=== PATIENT | female | born 1990 | race Caucasian/White ===

== ENCOUNTER 2019-03-04 21:21 | Emergency (ER) | payer OTHER, MEDICAID ==
[~2019-03-04] VITALS: Ht 160 cm; Wt 52.2 kg
[~2019-03-04 21:21] MED LIST: BIRTH CONTROL; XANAX; ZOLOFT
[2019-03-04] MEDS ORDERED: REMERON (21:43)
[2019-03-04] MEDS ORDERED: PRAZOSIN (21:44)
[2019-03-04] MEDS ORDERED: LEXAPRO (21:44)
[2019-03-04] MEDS ORDERED: GABAPENTIN (21:44)
[2019-03-04 22:38] LABS: ABSOLUTE EOSINOPHILS 0.2 thou/uL (0.0-0.7); ABSOLUTE LYMPHOCYTES 1.9 thou/uL (0.8-5.3); ABSOLUTE MONOCYTES 0.6 thou/uL (0.0-1.2); ABSOLUTE NEUTROPHILS 4.6 thou/uL (1.6-8.1); BASOPHILS 0.5 %; EOSINOPHILS 2.8 %; HEMATOCRIT 40.3 % (37.0-47.0); HEMOGLOBIN 13.6 gm/dL (12.0-15.0); LYMPHOCYTES 25.3 %; MCH 27.5 pg (26.0-34.0); MCHC 33.6 g/dL (28.0-37.0); MCV 81.7 fL (80.0-100.0); MPV 7.5 fl. (7.2-11.1); NUCLEATED RBCS 0 /100WBC; PLATELET COUNT* 285 thou/uL (150-400); POLYS 63.4 %; RBC 4.94 mil/uL (4.20-5.00); RDW-CV 14.8 % (10.5-14.5); WBC 7.3 thou/uL (4.0-11.0)
[2019-03-04 22:45] LABS: URINE BILIRUBIN NEGATIVE (Negative); URINE BLOOD NEGATIVE (Negative); URINE CLARITY CLEAR; URINE COLOR STRAW; URINE GLUCOSE-RANDOM NEGATIVE (Negative); URINE KETONES NEGATIVE (Negative); URINE LEUKOCYTES-REFLEX TRACE (Negative); URINE NITRITE-REFLEX POSITIVE (Negative); URINE PROTEIN NEGATIVE (Negative); URINE SPECIFIC GRAVITY <= 1.005 (1.005-1.030); URINE UROBILINOGEN 0.2 E.U./dl (0.2-1.0)
[2019-03-04 22:46] LABS: CALCIUM 8.7 mg/dL (8.5-10.1); CREATININE 0.9 mg/dL (0.6-1.3); POTASSIUM 3.9 mmol/L (3.5-5.1)
[2019-03-04 22:51] LABS: ALBUMIN 4.1 g/dL (3.4-5.0); TOTAL BILIRUBIN 0.4 mg/dL (<0.1-1.0); TOTAL PROTEIN 7.8 g/dL (6.4-8.2)
[2019-03-04 22:51] LABS: AMP/METHAMP POSITIVE (Negative); BARBITURATES Negative (Negative); BENZODIAZEPINES Negative (Negative); COCAINE Negative (Negative); METHADONE Negative (Negative); OPIATES Negative (Negative); PCP Negative (Negative); THC Negative (Negative)
[2019-03-04 23:01] LABS: SALICYLATE < 2.8 mg/dL (2.8-20.0)
[2019-03-04 23:02] LABS: ACETAMINOPHEN < 2 ug/mL (10-30); ALCOHOL < 10 mg/dL (<10)
[2019-03-05 00:17] LABS: CASTS None Seen /LPF (None Seen); SQUAMOUS 4-10 Moderate /LPF (0-3); URINE RBC None Seen /HPF (0-2); URINE WBC-REFLEX 0-5 Rare /HPF (0-5)
[2019-03-05 00:18] LABS: CRYSTALS None Seen /LPF (None Seen)
[2019-03-05 12:38] VITALS: BP 102/62
== END 2019-03-05 12:38 | disposition home or self-care (01) ==
LOC: M.ERS 21:21
PROVIDERS: Emergency Medicine Emergency Medical Services
DX: F32.9 Major depressive disorder, single episode, unspecified (principal); F41.9 Anxiety disorder, unspecified; F17.210 Nicotine dependence, cigarettes, uncomplicated; Z88.8 Allergy status to other drugs, medicaments and biological substances; Z79.899 Other long term (current) drug therapy

== ENCOUNTER 2019-04-10 22:33 | Emergency (ER) | payer OTHER, MEDICAID ==
[~2019-04-10] VITALS: Ht 162.6 cm; Wt 57.6 kg
[~2019-04-10 22:33] MED LIST changes: +GABAPENTIN; +LEXAPRO; +PRAZOSIN; +REMERON
[2019-04-10] MEDS ORDERED: NEURONTIN 300M300 M2 PO (22:46)
[2019-04-10] MEDS ORDERED: CELEXA 10 MG TA10 M1 PO (22:46)
[2019-04-10] MEDS ORDERED: PRAZOSIN 1 MG CA1 MG PO (22:47)
[2019-04-10] MEDS ORDERED: REMERON 30 MG T30 M1 PO (22:47)
[2019-04-10] MEDS ORDERED: PRAZOSIN 1 MG CA1 M1 PO (22:48)
[2019-04-10 23:21] LABS: ABSOLUTE EOSINOPHILS 0.1 thou/uL (0.0-0.7); ABSOLUTE LYMPHOCYTES 1.5 thou/uL (0.8-5.3); ABSOLUTE MONOCYTES 0.9 thou/uL (0.0-1.2); ABSOLUTE NEUTROPHILS 4.5 thou/uL (1.6-8.1); BASOPHILS 0.5 %; EOSINOPHILS 1.5 %; HEMATOCRIT 36.7 % (37.0-47.0); HEMOGLOBIN 12.3 gm/dL (12.0-15.0); LYMPHOCYTES 21.5 %; MCH 27.5 pg (26.0-34.0); MCHC 33.6 g/dL (28.0-37.0); MCV 81.9 fL (80.0-100.0); MONOCYTES 12.9 %; MPV 7.3 fl. (7.2-11.1); NUCLEATED RBCS 0 /100WBC; PLATELET COUNT* 297 thou/uL (150-400); POLYS 63.6 %; RBC 4.48 mil/uL (4.20-5.00); RDW-CV 16.3 % (10.5-14.5); WBC 7.1 thou/uL (4.0-11.0)
[2019-04-10 23:25] LABS: CALCIUM 8.2 mg/dL (8.5-10.1); CREATININE 0.9 mg/dL (0.6-1.3); POTASSIUM 3.1 mmol/L (3.5-5.1)
[2019-04-10 23:28] LABS: URINE BILIRUBIN NEGATIVE (Negative); URINE BLOOD 3+ (Negative); URINE CLARITY CLEAR; URINE COLOR YELLOW; URINE GLUCOSE-RANDOM NEGATIVE (Negative); URINE KETONES 1+ (Negative); URINE LEUKOCYTES-REFLEX NEGATIVE (Negative); URINE NITRITE-REFLEX NEGATIVE (Negative); URINE PROTEIN NEGATIVE (Negative); URINE SPECIFIC GRAVITY >= 1.030 (1.005-1.030); URINE UROBILINOGEN 0.2 E.U./dl (0.2-1.0)
[2019-04-10 23:29] LABS: ALBUMIN 4.1 g/dL (3.4-5.0); TOTAL BILIRUBIN 0.4 mg/dL (<0.1-1.0); TOTAL PROTEIN 7.9 g/dL (6.4-8.2)
[2019-04-10 23:34] LABS: AMP/METHAMP POSITIVE (Negative); BARBITURATES Negative (Negative); BENZODIAZEPINES Negative (Negative); COCAINE Negative (Negative); METHADONE Negative (Negative); OPIATES Negative (Negative); PCP Negative (Negative); THC Negative (Negative)
[2019-04-10 23:56] LABS: CASTS None Seen /LPF (None Seen); MUCUS 4-6 Moderate strn/LPF (None Seen); SQUAMOUS 0-3 Few /LPF (0-3)
[2019-04-10 23:57] LABS: URINE WBC-REFLEX 0-5 Rare /HPF (0-5)
[2019-04-10 23:58] LABS: BACTERIA-REFLEX 1-9 Few /HPF (None Seen); CRYSTALS None Seen /LPF (None Seen); URINE RBC 3-10 Few /HPF (0-2)
[2019-04-11 00:07] LABS: ACETAMINOPHEN 55 ug/mL (10-30); SALICYLATE < 2.8 mg/dL (2.8-20.0)
[2019-04-11 00:08] LABS: ALCOHOL < 10 mg/dL (<10)
[2019-04-11 12:48] VITALS: BP 96/57
== END 2019-04-11 12:50 ==
LOC: M.ERS 22:33
PROVIDERS: Family Medicine
DX: R45.851 Suicidal ideations (principal); F41.9 Anxiety disorder, unspecified; F32.9 Major depressive disorder, single episode, unspecified; F17.210 Nicotine dependence, cigarettes, uncomplicated; Z88.8 Allergy status to other drugs, medicaments and biological substances; Z79.899 Other long term (current) drug therapy

== ENCOUNTER 2019-07-02 16:16 | Emergency (ER) | payer OTHER, MEDICAID ==
[~2019-07-02] VITALS: Ht 160 cm; Wt 49.9 kg
[~2019-07-02 16:16] MED LIST changes: +CELEXA 10 MG TA10 M1 PO; +NEURONTIN 300M300 M2 PO; +PRAZOSIN 1 MG CA1 M1 PO; +PRAZOSIN 1 MG CA1 MG PO; +REMERON 30 MG T30 M1 PO
[2019-07-02] MEDS ORDERED: MINIPRESS1 MG PO (16:26)
[2019-07-02] MEDS ORDERED: LEXAPRO 10 MG T10 M2 PO (16:27)
[2019-07-02] MEDS ORDERED: ABILIFY 5 MG TAB5 MG PO (16:27)
[2019-07-02 16:38] LABS: ABSOLUTE EOSINOPHILS 0.1 thou/uL (0.0-0.7); ABSOLUTE LYMPHOCYTES 1.4 thou/uL (0.8-5.3); ABSOLUTE MONOCYTES 0.6 thou/uL (0.0-1.2); ABSOLUTE NEUTROPHILS 4.7 thou/uL (1.6-8.1); BASOPHILS 0.3 %; EOSINOPHILS 1.7 %; HEMATOCRIT 38.7 % (37.0-47.0); HEMOGLOBIN 12.6 gm/dL (12.0-15.0); LYMPHOCYTES 20.2 %; MCHC 32.5 g/dL (28.0-37.0); MCV 80.1 fL (80.0-100.0); MONOCYTES 8.3 %; MPV 6.8 fl. (7.2-11.1); NUCLEATED RBCS 0 /100WBC; PLATELET COUNT* 310 thou/uL (150-400); POLYS 69.5 %; RBC 4.83 mil/uL (4.20-5.00); RDW-CV 15.8 % (10.5-14.5); WBC 6.7 thou/uL (4.0-11.0)
[2019-07-02 16:47] LABS: CALCIUM 8.3 mg/dL (8.5-10.1); CREATININE 0.8 mg/dL (0.6-1.3); POTASSIUM 3.7 mmol/L (3.5-5.1)
[2019-07-02 16:51] LABS: ALBUMIN 3.6 g/dL (3.4-5.0); TOTAL BILIRUBIN 0.3 mg/dL (<0.1-1.0); TOTAL PROTEIN 7.1 g/dL (6.4-8.2)
[2019-07-02 16:53] LABS: ALCOHOL < 10 mg/dL (<10); SALICYLATE < 2.8 mg/dL (2.8-20.0)
[2019-07-02 16:55] LABS: ACETAMINOPHEN < 2 ug/mL (10-30)
[2019-07-02 16:57] LABS: URINE BILIRUBIN NEGATIVE (Negative); URINE BLOOD NEGATIVE (Negative); URINE CLARITY CLEAR; URINE COLOR YELLOW; URINE GLUCOSE-RANDOM NEGATIVE (Negative); URINE KETONES NEGATIVE (Negative); URINE LEUKOCYTES-REFLEX NEGATIVE (Negative); URINE NITRITE-REFLEX NEGATIVE (Negative); URINE PROTEIN NEGATIVE (Negative); URINE SPECIFIC GRAVITY >= 1.030 (1.005-1.030); URINE UROBILINOGEN 0.2 E.U./dl (0.2-1.0)
[2019-07-02 17:08] LABS: AMP/METHAMP POSITIVE (Negative); BARBITURATES Negative (Negative); BENZODIAZEPINES Negative (Negative); COCAINE Negative (Negative); METHADONE Negative (Negative); OPIATES Negative (Negative); PCP Negative (Negative); THC Negative (Negative)
[2019-07-03 13:07] VITALS: BP 109/66
== END 2019-07-03 13:07 ==
LOC: M.ERS 16:16
PROVIDERS: Family Medicine
DX: R45.851 Suicidal ideations (principal); F41.9 Anxiety disorder, unspecified; F17.210 Nicotine dependence, cigarettes, uncomplicated; Z88.8 Allergy status to other drugs, medicaments and biological substances; Z79.899 Other long term (current) drug therapy